=== PATIENT | female | born 1995 | race Asian ===

== ENCOUNTER 2018-06-09 22:16 | Emergency (ER) | payer OTHER ==
[~2018-06-09] VITALS: Ht 160 cm; Wt 86.4 kg
[2018-06-09 22:19] VITALS: BP 125/61; TEMP 97.6
[2018-06-10] MEDS ORDERED: PREDNISONE20 MG PO (01:49)
[2018-06-10 03:25] VITALS: PULSE 94
== END 2018-06-10 03:25 | disposition home or self-care (01) ==
LOC: COL.ER 22:16
DX: R06.00 Dyspnea, unspecified (principal); R06.2 Wheezing; F17.210 Nicotine dependence, cigarettes, uncomplicated
CPT/HCPCS: J7512

== ENCOUNTER 2018-10-20 17:36 | Inpatient (IN) | payer OTHER ==
[~2018-10-20] VITALS: Ht 160 cm; Wt 86.1 kg
[~2018-10-20 17:36] MED LIST: PREDNISONE20 MG PO
[2018-10-20 18:51] LABS: BASO # 0.1 (0.0-0.2); BASO % 0.6 % (0.0-2.0); EOS # 0.1 (0.0-0.7); EOS % 0.7 % (0-4.0); GRAN # 6.9 (1.4-6.5); GRAN % 67.8 % (42.2-75.2); HEMATOCRIT 41.5 % (37.0-47.0); HEMOGLOBIN 14.1 g/dl (12.5-16.0); LYMPH # 2.3 (1.2-3.4); LYMPH % 22.9 % (20.0-51.0); MEAN CELL VOLUME 84 fl (80.0-100.0); MEAN CORPUSCULAR HEMOGLOBIN 29 pg (27.0-31.0); MEAN CORPUSCULAR HGB CONC 34 g/dl (33.0-37.0); MONO # 0.8 (0.1-0.6); MONO % 7.8 % (1.7-9.3); PLATELET COUNT 249 K/mm3 (130-400); RED BLOOD COUNT 4.92 M/mm3 (4.10-5.30); REDCELL DISTRIBUTION WIDTH-CV 11.9 % (11.5-14.5)
[2018-10-20 19:10] LABS: ACETAMINOPHEN < 10 ug/mL (10-30); ALANINE AMINOTRANSFERASE 7 U/L (9-52); ALBUMIN 4.8 gm/dL (3.5-5.0); ALKALINE PHOSPHATASE 74 U/L (50-136); ANION GAP 13 mmol/L (7-16); AST,SGOT 19 U/L (15-37); BILIRUBIN,TOTAL 0.6 mg/dL (0.0-1.0); BLOOD UREA NITROGEN 7 mg/dL (7-17); CALCIUM 9.8 mg/dL (8.4-10.2); CARBON DIOXIDE 23 mmol/L (22-30); CHLORIDE 105 mmol/L (98-107); CREATININE, serum 0.66 (0.52-1.25); GLUCOSE 97 mg/dL (74-106); SALICYLATE < 1.0 mg/dL; SODIUM 141 mmol/L (137-145); TOTAL PROTEIN 8.7 gm/dL (6.4-8.2)
[2018-10-20 19:22] LABS: COLLECTION METHOD CLEAN CATCH
[2018-10-20 19:35] LABS: MUCOUS Present /lpf; PH 6 (5-8); URINE APPEARANCE Cloudy; URINE BACTERIA None Seen /hpf; URINE BILIRUBIN Negative (NEGATIVE); URINE BLOOD 3+ (NEGATIVE); URINE COLOR Yellow; URINE GLUCOSE Negative (NEGATIVE); URINE KETONE 1+ (NEGATIVE); URINE LEUKOCYTE ESTERASE Negative (NEGATIVE); URINE NITRATE Negative (NEGATIVE); URINE PROTEIN(semi-quant) Negative (NEGATIVE); URINE RBC 20-50 /hpf; URINE UROBILINOGEN Negative (NEGATIVE)
[2018-10-20] MEDS ORDERED: TRILEPTAL 150M150 MG PO (19:51)
[2018-10-20] MEDS ORDERED: HALDOL 5MG T5 MG/TAB PO (19:52)
--- NOTE | 2018-10-20 21:23 | NUR ---
Patient arrived to ICU, accompanied by brother. Patient ambulating down the hallway, no issues. Stated she is tired and would like to go to bed. Will assume care of patient at this time.
[2018-10-20 22:01] VITALS: BP 130/71; PULSE 62; TEMP 98.8
[2018-10-20 23:56] LABS: CALCIUM 8.9 mg/dL (8.4-10.2); CREATININE, serum 0.62 (0.52-1.25); POTASSIUM 3.6 mmol/L (3.4-5.0)
[2018-10-21] VITALS: BP 117/633; PULSE 63
[2018-10-21 04:00] VITALS: BP 120/56; PULSE 71; TEMP 98.2
[2018-10-21 05:36] LABS: BASO % 0.4 % (0.0-2.0); EOS # 0.2 (0.0-0.7); EOS % 2.2 % (0-4.0); GRAN # 4.5 (1.4-6.5); GRAN % 53.9 % (42.2-75.2); HEMATOCRIT 37.5 % (37.0-47.0); HEMOGLOBIN 12.4 g/dl (12.5-16.0); LYMPH # 2.8 (1.2-3.4); LYMPH % 33.8 % (20.0-51.0); MEAN CELL VOLUME 86 fl (80.0-100.0); MEAN CORPUSCULAR HEMOGLOBIN 28 pg (27.0-31.0); MEAN CORPUSCULAR HGB CONC 33 g/dl (33.0-37.0); MEAN PLATELET VOLUME 10.2 fl (7.4-10.4); MONO # 0.8 (0.1-0.6); MONO % 9.5 % (1.7-9.3); PLATELET COUNT 243 K/mm3 (130-400); RED BLOOD COUNT 4.38 M/mm3 (4.10-5.30); REDCELL DISTRIBUTION WIDTH-CV 11.9 % (11.5-14.5)
--- NOTE | 2018-10-21 05:42 | NUR ---
Patient still has not voided at this time. Asked patient if she felt the need, and she stated "She just wanted to sleep some more." Notified DOMENICA Miller of patient not voiding yet, and she was ok with patient waiting until she was more awake. Will continue to monitor.
--- NOTE | 2018-10-21 07:15 | NUR ---
Bedside shift report received from JURGEN Muller. Patient is lying on her right side in bed asleep. Patient's father is at the bedside. Patient is stable, assessment completed. Call light placed within reach. Bed in lowest position.
--- NOTE | 2018-10-21 08:00 | NUR ---
Patient reassessed while awake. Patient is alert and oriented, but states she is anxious. Patient has visible tremors and wants to walk around the room. Patient safely ambulated around the room with standby assist by her father. After a few minutes the patient safely returns back to bed with no complications.
--- NOTE | 2018-10-21 09:35 | NUR ---
Report called to JURGEN Bermeo.
--- NOTE | 2018-10-21 09:53 | NUR ---
Patient transferred to medical room 307 via wheelchair with no complications. Patient's father present upon transfer and is carrying the patient's belongings for her. Once in the room, the patient is assisted to bed safely, call light placed within reach, bed lowered to lowest position. Patient's chart placed in the correct spot behind the nurse's station. JURGEN Bermeo notified in person of patient's presence in the room. Upon leaving the floor, the patient and her father are noted to be ambulating in the hallway.
--- NOTE | 2018-10-21 10:00 | NUR ---
Patient up to room 307. Patient ambulating lemus with father at side. This nurse walked with patient and father, escorted back to room. Patient has noticeable tremors, oriented, talking in complete sentences. Patient appears anxious, fixed gaze. No drooling noted, steady gait during ambulation. Father will continue to be at bedside. Patient resting in bed.
[2018-10-21 10:58] VITALS: BP 142/92; PULSE 85; TEMP 98.3
--- NOTE | 2018-10-21 11:10 | NUR ---
Patient was moved from ICU to room 307. She was asleep when I went to her room.
--- NOTE | 2018-10-21 12:45 | NUR ---
Patient seen in room, patient had been sleeping after arrival to room. Patient denies dizziness, nausea, vomiting, vision changes, or SOB. Lung sounds are clear, heart RRR. Patient states she is feeling a little better. Observed getting back into bed after going to bathroom, moving slowly. Patient states she wants to go back to bed. Patient will lie down and then sit up with arms rigid and extended, then lie back down. Per father "she doesn't have tremors while sleeping". Bowel sounds present, pulses strong. Patients father ordered her lunch, states she hasn't had much of an appetite. Call light within reach.
--- NOTE | 2018-10-21 13:42 | NUR ---
Patient observed walking lemus with father. Patient has steady gate, moving slowly. Stopped to talk to this nurse on her way back to room. Patient speaks in complete sentences but with a shaky voice. Patient has a fixed gaze when speaking to you. Arms are rigid at side while walking. No loss of balance or SOB. Will continue to monitor.
--- NOTE | 2018-10-21 14:04 | NUR ---
ABDIEL met with the patient, the patient's dad, and brother to discuss a discharge plan. The patient lives with her immediate family in [place]. The patient does not use any DME and reports independence with ADLs. The patient reports that she does not have a PCP and she receives any medications at [facility]. The patient reports no difficulties obtaining her medications. The patient does not have advanced directives in the EMR and she was not interested in obtaining a DPOA-HC form. The patient plans to return home upon discharge. There are no additional needs at this time.
[2018-10-21 15:33] VITALS: BP 149/92; PULSE 91; TEMP 99
--- NOTE | 2018-10-21 16:00 | NUR ---
Patient in room with brother at bedside. patient is pacing around room, arms rigid and extended. Patient communicates with this nurse, talks slowly. Occasionally drooling. Patient denies other pain.
[2018-10-21 19:06] VITALS: BP 151/82; PULSE 90; TEMP 98
--- NOTE | 2018-10-21 19:24 | NUR ---
Patient and family members in room. Patient has been pacing room most of the day since arriving. Very sweet, polite. Denies pain. States that pacing keeps her from tremoring. Patient holds arms rigidly as if she is approaching for a hug. Patient administered benadryl. No other needs at this time. Report given to JURGEN Aguiar.
--- NOTE | 2018-10-21 20:20 | NUR ---
Patient pacing the room, family at bedside. Assessment completed- lungs clear, abdominal sounds active, pulses +3, cap refill <3 seconds, denies pain. Given oral medications. Neuro check's unchanged. No needs at this time.
[2018-10-21 22:48] VITALS: BP 150/75; PULSE 95; TEMP 98.4
--- NOTE | 2018-10-22 03:45 | NUR ---
Pt's father refusing vitals to be taken at this time, pt finally fell asleep after pacing for most of the shift.
--- NOTE | 2018-10-22 05:03 | NUR ---
Pt did not sleep much last night. Paced halls and room for most of thhe shift. Was able to get 1-2 hrs of sleep last night. VSS, no reports of pain.
[2018-10-22 05:09] VITALS: BP 146/77; PULSE 83; TEMP 97.4
--- NOTE | 2018-10-22 06:59 | NUR ---
Report given to JURGEN Bermeo.
[2018-10-22 07:41] LABS: BASO # 0.1 (0.0-0.2); BASO % 0.5 % (0.0-2.0); EOS # 0.2 (0.0-0.7); EOS % 2.3 % (0-4.0); GRAN # 5.8 (1.4-6.5); GRAN % 63.6 % (42.2-75.2); HEMATOCRIT 39.2 % (37.0-47.0); HEMOGLOBIN 13.1 g/dl (12.5-16.0); LYMPH # 2.3 (1.2-3.4); LYMPH % 25.2 % (20.0-51.0); MEAN CELL VOLUME 86 fl (80.0-100.0); MEAN CORPUSCULAR HEMOGLOBIN 29 pg (27.0-31.0); MEAN CORPUSCULAR HGB CONC 33 g/dl (33.0-37.0); MEAN PLATELET VOLUME 10.3 fl (7.4-10.4); MONO # 0.8 (0.1-0.6); MONO % 8.2 % (1.7-9.3); PLATELET COUNT 248 K/mm3 (130-400); RED BLOOD COUNT 4.57 M/mm3 (4.10-5.30); REDCELL DISTRIBUTION WIDTH-CV 11.9 % (11.5-14.5)
[2018-10-22 07:56] VITALS: BP 147/88; PULSE 74; TEMP 98.1
[2018-10-22 07:56] LABS: CALCIUM 9.7 mg/dL (8.4-10.2); CREATININE, serum 0.64 (0.52-1.25); POTASSIUM 3.8 mmol/L (3.4-5.0)
--- NOTE | 2018-10-22 08:15 | NUR ---
Patient walking lemus. This nurse walked with patient a few laps, talked. Patient is talking in clear sentences, voice is less tremulous than yesterday. Patient is oriented. Per patient "i am feeling much better than yesterday. I think I took my self care too far and went down a rabbit hole and overthought everything." Walked with patient back to room. Patient also stated she ate breakfast, tolerating well, swallowing hs felt easier. Swallowing while walking has been easier and there is a noticeable decrease in drooling.
--- NOTE | 2018-10-22 09:45 | NUR ---
Assessment complete. Patient denies pain. Lung sounds clear throughout, bowel sounds present X4. Heart RRR. No edema noted. Pulses strong bilaterally. Patient denies SOB, chest pain, N/V, numbness or tingling. Patient states she had breakfast and tolerated well. Patient states she is feeling much better, more like "her normal". Patient still pacing room and halls, some tremulous speaking but more clear. No drooling noted or observed. LAC IV is CDI. patient requesting to shower. No other needs at this time.
[2018-10-22 11:22] VITALS: BP 143/84; PULSE 86; TEMP 97.9
[2018-10-22 17:40] VITALS: BP 144/91; PULSE 84; TEMP 97.6
--- NOTE | 2018-10-22 19:57 | NUR ---
Patient has had uneventful day. Moderate pacing in room, states "helps the shaking". Family and friends have been in the room throughout the day. Patient has had a better day than prior days. This nurse notes noticeable difference in interactions from yesterday. Patient also appears less rigid, mild rigidity in arms. Patient has had better appetite today and is tolerating well. No other needs. Report given to JURGEN Zuleta.
[2018-10-22 20:56] VITALS: BP 145/97; PULSE 93; TEMP 98.2
[2018-10-23] VITALS (7 sets, daily range): BP systolic 129–149; BP diastolic 69–93; PULSE 69–93; TEMP 97.6–98.8
--- NOTE | 2018-10-23 05:01 | NUR ---
PT HAD BEEN UNABLE TO GET SLEEP THIS NOC. ADMINSTERD FELISHA AT , PT FELT SLEEPY BUT WAS UNABLE TO FALL ASLEEP. PT ASKED THIS NURSE IF WE COULD ATTEMPT SOMETHING ELSE FOR SLEEP. THIS NURSE ATTEMPTED TO CALL MISTI METZGER X2 WAS UNABLE TO GET THROUGH TO ASK. PT HAD BEEN PACING HALLS MOST OF NIGHT. NO OTHER COMPLAINTS VOICED THIS NOC.
[2018-10-23 06:28] LABS: BASO # 0.1 (0.0-0.2); BASO % 0.5 % (0.0-2.0); EOS # 0.4 (0.0-0.7); EOS % 3.5 % (0-4.0); GRAN % 58.7 % (42.2-75.2); HEMATOCRIT 37.1 % (37.0-47.0); HEMOGLOBIN 12.5 g/dl (12.5-16.0); LYMPH # 2.9 (1.2-3.4); LYMPH % 28.7 % (20.0-51.0); MEAN CELL VOLUME 86 fl (80.0-100.0); MEAN CORPUSCULAR HEMOGLOBIN 29 pg (27.0-31.0); MEAN CORPUSCULAR HGB CONC 34 g/dl (33.0-37.0); MEAN PLATELET VOLUME 10.6 fl (7.4-10.4); MONO # 0.8 (0.1-0.6); PLATELET COUNT 236 K/mm3 (130-400); RED BLOOD COUNT 4.32 M/mm3 (4.10-5.30); REDCELL DISTRIBUTION WIDTH-CV 11.9 % (11.5-14.5)
[2018-10-23 06:34] LABS: BILIRUBIN,TOTAL 0.3 mg/dL (0.0-1.0); CALCIUM 9.4 mg/dL (8.4-10.2); CREATININE, serum 0.69 (0.52-1.25); PHOSPHOROUS 4.7 mg/dL (2.5-4.5); POTASSIUM 3.9 mmol/L (3.4-5.0); TOTAL PROTEIN 7.2 gm/dL (6.4-8.2)
--- NOTE | 2018-10-23 08:13 | NUR ---
Assessment complete. Pt is AXO X3, denies having any pain at this time. Breathing is even and unlabored on room air. LA INT flushes easily, remains free of complications, and is CDI. Pt was walking around the floor early this morning and reports she didn't get much sleep. Pt's father is at the bedside; all questions answered. Pt is now back in her room and she denies further needs. Call light within reach, will continue to monitor.
--- NOTE | 2018-10-23 18:10 | NUR ---
Pt has been resting on and off throughout the day. She has gone through phases of walking the hallways to sleeping quietly in her room. Has denies pain. Family members have remained at the bedside; all questions answered. Pt is resting quietly in the chair at this time and she denies further needs. Call light within reach.
--- NOTE | 2018-10-23 18:44 | NUR ---
Report given to JURGEN Khoury.
--- NOTE | 2018-10-23 20:52 | NUR ---
Sitting at bedside. Assessment complete. Lungs clear. Heart sounds normal. Bowels active x4. Pulses strong throughout. No edema noted. Denies pain. Patient has walked hallways several times this evening. Brother at bedside. Will continue to monitor.
--- NOTE | 2018-10-23 21:43 | NUR ---
Per lab trileptal level is a send out lab. Will not have results til AM. Spoke with Dannielle METZGER-give dose ordered tonight. Provided to patient. Denies other needs at this time.
--- NOTE | 2018-10-24 02:06 | NUR ---
Patient asleep in bed. Neuro check not complete at this time to allow patient to rest as patient has been ambulating hallways throughout night. Will reassess when patient awake.
--- NOTE | 2018-10-24 04:10 | NUR ---
Patient ambulating hallways. Reports "trying to do yoga for relaxation."
[2018-10-24 04:21] VITALS: BP 134/69; PULSE 84; TEMP 97.5
--- NOTE | 2018-10-24 06:04 | NUR ---
Patient slept 3-4 hours last night. Ambulated throughout hallways with family. Brother at bedside this AM. Denies needs. Call light in reach.
--- NOTE | 2018-10-24 07:09 | NUR ---
Report given to JURGEN Fuller
[2018-10-24 08:15] VITALS: BP 134/77; PULSE 86; TEMP 98.3
--- NOTE | 2018-10-24 10:49 | NUR ---
PATIENT A/O X 4. ATTITUDE CALM AND PLEASANT. WALKING HALLWAYS. COPPERATIVE WITH CARES. ATE BREAKFAST SITTING ON BED IN ROOM. DENIES COMPLAINTS DURING VISIT. FAMILY IN ROOM SLEEPING AT THIS TIME.
--- NOTE | 2018-10-24 11:28 | NUR ---
First visit from the cement mixer. No needs right now.
[2018-10-24] MEDS ORDERED: SEROQUEL50 MG PO (11:53)
[2018-10-24] MEDS ORDERED: SEROQUEL 2525 MG/TAB PO (11:53)
[2018-10-24] MEDS ORDERED: COGENTIN 1MG1 MG/TAB PO (11:53)
--- NOTE | 2018-10-24 12:00 | NUR ---
THIS RN REVIEWED JORGE'S FINDINGS AND AGREES WITH ALL ABOVE.PATIENT PLEASANT THROUGHOUT THIS SHIFT.DENIES ANY NEEDS.DISCHARGE HOME SOON PER ORDERS.
[2018-10-24 12:17] VITALS: BP 143/82; PULSE 93; TEMP 98.6
--- NOTE | 2018-10-24 12:42 | NUR ---
PATIENT DC TO HOME ACCOMPANIED BY FAMILY @ 9610. PRINTED DC INSTRUCTIONS REVIEWED WITH PATIENT AND FAMILY. NO QUESTIONS OR CONCERNS VOICED AFTER REVIEW, ACKNOWLEDGING INSTRUCTIONS.
--- NOTE | 2018-10-24 13:07 | NUR ---
ABDIEL bose attended clinical rounding. The patient is to discharge back home today, 10/24, and will have an outpatient appointment at [facility] for follow up. The patient states she needs documentation from Psychiatry for her court hearing coming up. ABDIEL bose provided the patient with Dr. Lema contact information. No additional needs at this time.
== END 2018-10-24 12:40 | disposition home or self-care (01) | DRG 57 ==
LOC: COL.ER 17:36 → MEDICAL 20:26 → ICU 21:18 → MEDICAL 10-21 10:28
PROVIDERS: Emergency Medicine; Family Medicine; Nurse Practitioner; ADMIT Family Medicine
DX: G21.19 Other drug induced secondary parkinsonism (principal); T43.4X5A Adverse effect of butyrophenone and thiothixene neuroleptics, initial encounter; F41.9 Anxiety disorder, unspecified; F17.210 Nicotine dependence, cigarettes, uncomplicated; F39 Unspecified mood [affective] disorder; F12.159 Cannabis abuse with psychotic disorder, unspecified
CPT/HCPCS: 99222-AI; 99233-AI; 99239; G0463; J1200; J7030

== ENCOUNTER → 2018-11-07 | Outpatient (CLI) | payer OTHER ==
[~2018-11-07] MED LIST changes: +COGENTIN 1MG1 MG/TAB PO; +HALDOL 5MG T5 MG/TAB PO; +SEROQUEL 2525 MG/TAB PO; +SEROQUEL50 MG PO; +TRILEPTAL 150M150 MG PO
== END ==
LOC: BHSO 12:51
DX: F31.74 Bipolar disorder, in full remission, most recent episode manic (principal)

== ENCOUNTER → 2018-12-08 | Outpatient (CLI) | payer OTHER | LOC: BHSO 14:25 | DX: F31.74 Bipolar disorder, in full remission, most recent episode manic (principal) | CPT/HCPCS: G0463 ==